=== PATIENT | female | born 1980 ===

== ENCOUNTER 2019-05-07 13:12 | Inpatient (IN) | payer OTHER ==
[2019-05-07 14:09] LABS: Hematocrit 40.4 % (30.3-42.9); Hemoglobin 13.4 gm/dl (10.1-14.3); Mean Corpuscular HGB Conc 33 % (30-34); Mean Corpuscular Volume 91 fl (79-97); Platelet Count 251 K/mm3 (140-440); Red Blood Count 4.44 M/mm3 (3.65-5.03); Red Cell Distribution Width 13.5 % (13.2-15.2)
[2019-05-07 14:29] LABS: Alanine Aminotransferase 20 units/L (7-56); Uric Acid 5.1 mg/dL (3.5-7.6)
[2019-05-07 14:35] LABS: Bacteria,Urine 1+ /HPF (Negative); Bilirubin,Urine NEG (Negative); Blood,Urine NEG (Negative); Color,Urine Yellow (Yellow); Mucus,Urine FEW /HPF; Protein,Urine <15 mg/dL mg/dL (Negative); Urobilinogen,Urine < 2.0 mg/dL (<2.0)
--- NOTE | 2019-05-07 15:36 | History and Physical Report ---
History of Present Illness Date of examination: 05/07/19 Date of admission: 05/07/19 13:12 Chief complaint: IOL secondary to elevated B/P readings History of present illness: 39 yo, @ 37.6 wks gestation, initiated care with [facility] @ 8 wks. Her has been complicated by AMA, MO and pregestational DM (Glyburide 2.5mg). She was sent to [facility] from the office today for IOL secondary to elevated B/P reading of 170/93, with 24 hr urine protein result of 330mg. She reports positive FM. Denies VB, H/A, visual changes, epigastric pain or LOF. Labs: O+, antibody negative; Pap normal; Rubella immune; VDRL negative; urine culture negative; HBsAg negative; HIV negative; GC/ Chlamydia netative MSAFP netative; 1 hr gtt - 201; GBS negative. Past History Past Medical History: diabetes, other (morbid obesity; Left breast cyst 2015) Past Surgical History: no surgical history Family/Genetic History: diabetes (Father), hypertension (Mother) Social history: , lives with family, full code. denies: smoking, alcohol abuse, prescription drug abuse, IV drug use - Obstetrical History Expected Date of Delivery: 05/22/19 Actual Gestation: 37 Week(s) 6 Day(s) : 2 Para: 2 Hx # Term Pregnancies: 0 Number of Pregnancies: 1 Spontaneous Abortions: 0 Induced : 0 Number of Living Children: 2 #1 Gender: Female year: 2[age][birth year] (Twins) Method of Delivery: Vaginal Gestational age at delivery: 34 Complications: none Medications and Allergies Allergies Allergy/AdvReac Type Severity Reaction Status Date / Time No Known Allergies Allergy Unverified 05/07/19 13:31 Review of Systems All systems: negative - Vital Signs Vital signs: Vital Signs Pulse BP 71 162/74 05/07/19 13:55 05/07/19 13:55 Temp Pulse Resp BP Pulse Ox 97.7 F 80 16 160/80 05/07/19 14:12 05/07/19 14:54 05/07/19 14:12 05/07/19 14:54 - Physical Exam Breasts: Positive: normal Cardiovascular: Normal S1 Lungs: Positive: Normal air movement Abdomen: Positive: other (gravid) Genitourinary (Female): Positive: normal external genitalia, normal perenium Vagina: Positive: normal moisture Uterus: Positive: enlarged (S>D) Extremities: Positive: edema (BLE) Deep Tendon Reflex Grade: Normal +2 - Obstetrical FHR: category 1 Uterine Contraction Monitor Mode: External Cervical Dilatation: 0 Cervical Effacement Percentage: 30 station: -4 Uterine Contraction Pattern: Irregular Uterine Tone Measurement Phase: Resting Uterine Contraction Intensity: Mild Results Result Diagrams: 05/07/19 13:52 05/07/19 13:53 Abnormal lab results 05/07/19 05/07/19 Range/Units 13:52 13:53 WBC 12.0 H (4.5-11.0) K/mm3 Creatinine 0.3 L (0.7-1.2) mg/dL Lactate Dehydrogenase 236 H (91-180) units/L All other labs normal. Assessment and Plan - Patient Problems (1) Encounter for induction of labor Current Visit: Yes Status: Acute Plan to address problem: Admit to L & D for IOL Cervidil 10 mg vaginal x 12 hrs as tolerated Pain medications as desired Anticipate (2) Elevated blood pressure affecting in third trimester, antepartum Current Visit: Yes Status: Acute Plan to address problem: Monitor B/Ps every hour Administer anti-hypertensives as ordered Notify provider for B/P readings > 160/110 (3) BMI 38.0-38.9,adult Current Visit: Yes Status: Acute
--- NOTE | 2019-05-07 15:58 | Ultrasound Report ---
ULTRASOUND OBSTETRIC LIMITED INDICATION / CLINICAL INFORMATION: PRESENTATION. TECHNIQUE: Transabdominal ultrasound imaging. COMPARISON: None available. FINDINGS: HEART RATE (beats per minute): 139 AMNIOTIC FLUID INDEX (cm) = not measured PRESENTATION: Cephalic. ADDITIONAL FINDINGS: None. IMPRESSION: Cephalic presentation Signer Name: Roshan Sanchez Jr, MD Signed: 05/07/2019 3:54 PM Workstation Name: [id number]
[2019-05-07] MEDS ORDERED: LABETALOL IV ONE ×2 (16:00→16:04)
[2019-05-07] MEDS ORDERED: BRETHINE SUB-Q PRN (16:04)
[2019-05-07] MEDS ORDERED: MINERAL OIL PO PRN (16:04)
[2019-05-07] MEDS ORDERED: ZOFRAN IV PRN (16:04)
[2019-05-07] MEDS ORDERED: STADOL IV PRN (16:04)
[2019-05-07] MEDS ORDERED: XYLOCAINE 2% INFILTRATI ONE (16:04)
[2019-05-07] MEDS ORDERED: LACTATED RINGERS 1,000 ML ONE (16:04)
[2019-05-07] MEDS ORDERED: CERVIDIL VG ONE (16:30)
[2019-05-07] MEDS ORDERED: PITOCin/NS 20 UNIT/1000ML DRIP 20 UNITS/1,000 ML BAG IV SCH (17:00)
[2019-05-07] MEDS: LABETALOL PO SCH ×2 (19:59→22:00)
[2019-05-08] MEDS ORDERED: DIABETA PO SCH (08:00)
[2019-05-08] MEDS: CYTOTEC VG PRN ×2 (09:15→14:06)
[2019-05-08] MEDS: LACTATED RINGERS 1,000 ML IV SCH ×2 (09:48→18:15)
--- NOTE | 2019-05-08 10:04 | Event Note ---
Date: 05/08/19 Examined at 0910HRs. Fetus category 1 tracing. Cytotec 25mcg was inserted. Cervix was 3 cm. 60% effaced. Membranes were intact.
[2019-05-08] MEDS: LABETALOL PO SCH (13:37)
--- NOTE | 2019-05-08 14:11 | Progress Note ---
Assessment and Plan A: IUP @ 38 Weeks Category I Tracing PIH Pregestional Diabetes GBS Negative P: Cytotec 25mg Intravaginal x 1 dose Continue Accuchecks as ordered Continue Glyburide as Ordered Continue Labetolol as Ordered Subjective - Subjective Date of service: 05/08/19 Patient reports: contractions, other (Denies HAs, Visual changes, Dizziness, Nausea) Objective - Vital Signs Vital Signs: Vital Signs - 12hr 05/08/19 05/08/19 05/08/19 02:22 03:22 04:22 Pulse Rate 77 81 79 Blood Pressure 140/70 151/72 137/71 05/08/19 05/08/19 05/08/19 05:22 06:22 08:20 Pulse Rate 82 81 76 Blood Pressure 145/77 149/67 168/76 05/08/19 05/08/19 05/08/19 08:23 09:23 10:23 Pulse Rate 81 77 81 Blood Pressure 144/72 135/63 198/84 05/08/19 05/08/19 05/08/19 11:23 13:20 13:22 Pulse Rate 100 H 85 86 Blood Pressure 201/87 178/77 162/64 05/08/19 13:37 Pulse Rate Blood Pressure 162/64 - Exam Breasts: normal Cardiovascular: Regular rate Lungs: Clear to auscultation, Normal air movement Abdomen: Present: normal appearance, soft, normal bowel sounds Uterus: Present: normal, firm, fundal height above umbilicus FHR: category 1 Uterine Contraction Monitor Mode: External Cervical Dilatation: 2 (VTX, Intact) Cervical Effacement Percentage: 50 station: -3 Uterine Contraction Pattern: Irregular Uterine Tone Measurement Phase: Resting Uterine Contraction Intensity: Mild - Labs Labs: Abnormal Labs 05/07/19 05/07/19 13:52 13:53 WBC 12.0 H Creatinine 0.3 L Lactate Dehydrogenase 236 H Laboratory Results - last 24 hr 05/07/19 05/07/19 05/07/19 13:46 13:52 13:53 WBC 12.0 H RBC 4.44 Hgb 13.4 Hct 40.4 MCV 91 MCH 30 MCHC 33 RDW 13.5 Plt Count 251 Creatinine 0.3 L Estimated GFR > 60 POC Glucose Uric Acid 5.1 AST 21 ALT 20 Lactate Dehydrogenase 236 H Urine Color Urine Turbidity Urine pH Ur Specific Bedias Urine Protein Urine Glucose (UA) Urine Ketones Urine Blood Urine Nitrite Urine Bilirubin Urine Urobilinogen Ur Leukocyte Esterase Urine WBC (Auto) Urine RBC (Auto) U Epithel Cells (Auto) Urine Bacteria (Auto) Urine Mucus Blood Type O POSITIVE Antibody Screen Negative 05/07/19 05/08/19 05/08/19 14:00 02:45 06:20 WBC RBC Hgb Hct MCV MCH MCHC RDW Plt Count Creatinine Estimated GFR POC Glucose 71 71 Uric Acid AST ALT Lactate Dehydrogenase Urine Color Yellow Urine Turbidity Slightly-cloudy Urine pH 6.0 Ur Specific [place] 1.018 Urine Protein <15 mg/dl Urine Glucose (UA) Neg Urine Ketones Neg Urine Blood Neg Urine Nitrite Neg Urine Bilirubin Neg Urine Urobilinogen < 2.0 Ur Leukocyte Esterase Neg Urine WBC (Auto) 1.0 Urine RBC (Auto) 4.0 U Epithel Cells (Auto) 4.0 Urine Bacteria (Auto) 1+ Urine Mucus Few Blood Type Antibody Screen
[2019-05-08] MEDS: PITOCin/NS 30 UNIT/500ML 30 UNITS/500 ML BAG IV SCH (18:48)
[2019-05-08] MEDS ORDERED: AMBIEN PO PRN (19:50)
[2019-05-08] MEDS ORDERED: LABETALOL IV ONE ×2 (20:40→21:16)
[2019-05-08] MEDS: SUBLIMAZE IV PRN (20:54)
--- NOTE | 2019-05-08 20:54 | Progress Note ---
Subjective - Subjective Date of service: 05/08/19 Principal diagnosis: IUP at term,PIH, GDM with treatable series BP and pain Interval history: BP 205/79 Patient with slight frontal headache I ordered Labetalol 20mg IV stat and repeat BP in 10 minutes At bedside, category 1 tracing Cervix 2cm/4cm long/-4 station Oxytocin at 2mu/min, [place] shows contractions Q3-4 minutes I asked for oxytocin to be on hold and for cervidil to be placed. Will repeat Labetalol 40mg IV if BP s persistently elevated >160/110. I have ordered repeat PIH Labs and Magnesium Sulfate at 2gm/hr Will monitor closely Hill CORRIGAN Patient reports: contractions, other (Denies HAs, Visual changes, Dizziness, Nausea) Objective - Vital Signs Vital Signs: Vital Signs - 12hr 05/08/19 05/08/19 05/08/19 09:23 10:23 11:23 Temperature Pulse Rate 77 81 100 H Blood Pressure 135/63 198/84 201/87 05/08/19 05/08/19 05/08/19 13:20 13:22 13:37 Temperature Pulse Rate 85 86 Blood Pressure 178/77 162/64 162/64 05/08/19 05/08/19 05/08/19 14:23 15:22 16:22 Temperature Pulse Rate 78 77 81 Blood Pressure 174/75 145/69 146/68 05/08/19 05/08/19 05/08/19 17:16 17:22 18:22 Temperature 98.4 F Pulse Rate 81 75 Blood Pressure 134/64 136/65 05/08/19 05/08/19 05/08/19 19:23 20:23 20:33 Temperature Pulse Rate 81 85 80 Blood Pressure 140/65 205/79 184/79 05/08/19 05/08/19 20:36 20:51 Temperature Pulse Rate 75 80 Blood Pressure 185/81 179/88 - Labs Labs: Abnormal Labs 05/07/19 05/07/19 13:52 13:53 WBC 12.0 H Creatinine 0.3 L Lactate Dehydrogenase 236 H Laboratory Results - last 24 hr 05/08/19 05/08/19 05/08/19 02:45 06:20 15:52 POC Glucose 71 71 89 05/08/19 20:43 POC Glucose 75
[2019-05-08] MEDS ORDERED: MAGNESIUM SULFATE 4GM/100ML 4 GM/100 ML BAG IV ONE ×2 (21:07→21:13)
[2019-05-08 21:48] LABS: Hematocrit 37.2 % (30.3-42.9); Hemoglobin 12.6 gm/dl (10.1-14.3); Mean Corpuscular HGB Conc 34 % (30-34); Mean Corpuscular Volume 91 fl (79-97); Platelet Count 234 K/mm3 (140-440); Red Blood Count 4.06 M/mm3 (3.65-5.03); Red Cell Distribution Width 13.9 % (13.2-15.2)
[2019-05-08 22:00] LABS: Alanine Aminotransferase 21 units/L (7-56); BUN/Creatinine Ratio 33; Blood Urea Nitrogen 13 mg/dL (7-17); Calcium 8.3 mg/dL (8.4-10.2); Hemolysis Index 6; Uric Acid 6.3 mg/dL (3.5-7.6)
[2019-05-08] MEDS ORDERED: MAGNESIUM SULFATE 40GM/1000ML 40 GM/1,000 ML BAG IV SCH (22:00)
[2019-05-08] MEDS ORDERED: CERVIDIL VG ONE (22:15)
[2019-05-08 23:36] LABS: Hematocrit 36.2 % (30.3-42.9); Hemoglobin 12.5 gm/dl (10.1-14.3); Mean Corpuscular HGB Conc 35 % (30-34); Mean Corpuscular Volume 92 fl (79-97); Platelet Count 234 K/mm3 (140-440); Red Blood Count 3.95 M/mm3 (3.65-5.03); Red Cell Distribution Width 13.8 % (13.2-15.2)
[2019-05-09] MEDS: LABETALOL PO SCH ×3 (01:05→21:37)
[2019-05-09 01:46] LABS: Basophils % (Manual) 0 % (0.0-1.8); Eosinophils % (Manual) 0 % (0.0-4.3); Total Cells Counted 100
[2019-05-09 01:47] LABS: Large Platelets 1+; Platelet Estimate Consistent w Auto; RBC Morphology Normal
[2019-05-09] MEDS: SUBLIMAZE IV PRN (04:23)
[2019-05-09] MEDS: LACTATED RINGERS 1,000 ML IV SCH (05:30)
--- NOTE | 2019-05-09 11:02 | Progress Note ---
Assessment and Plan A: Term IUP 38w 1d GBS Negative Magnesium Sulfate 2g/hr PIH: PIH labs WNL; VSS GDM Category [address] P: Routine labor orders Continue magnesium Sulfate (Mag level Q4hrs) Continue Glyburide Remove cervidil Pitocin Augmentation Anticipate Subjective - Subjective Date of service: 05/09/19 Principal diagnosis: IUP at term,IOL (PIH, GDM) Interval history: See H&P Patient reports: vaginal bleeding (brownish bloody show), movement normal, contractions, other (Denies HAs, Visual changes, Dizziness, Nausea), no loss of fluid Objective - Vital Signs Vital Signs: Vital Signs - 12hr 05/08/19 05/08/19 05/08/19 23:01 23:12 23:21 Temperature Pulse Rate 75 73 76 Respiratory Rate Blood Pressure 179/70 137/63 137/64 Blood Pressure [Right] 05/08/19 05/08/19 05/08/19 23:32 23:42 23:51 Temperature Pulse Rate 75 77 78 Respiratory Rate Blood Pressure 147/67 137/65 134/62 Blood Pressure [Right] 05/09/19 05/09/19 05/09/19 00:00 00:01 00:11 Temperature 98.1 F Pulse Rate 71 73 Respiratory 18 Rate Blood Pressure 143/62 140/62 Blood Pressure [Right] 05/09/19 05/09/19 05/09/19 00:21 00:33 00:42 Temperature Pulse Rate 72 78 78 Respiratory Rate Blood Pressure 155/67 157/74 126/58 Blood Pressure [Right] 05/09/19 05/09/19 05/09/19 00:51 01:01 01:05 Temperature Pulse Rate 78 78 78 Respiratory Rate Blood Pressure 139/63 138/66 138/66 Blood Pressure [Right] 05/09/19 05/09/19 05/09/19 01:11 01:21 01:31 Temperature Pulse Rate 77 79 76 Respiratory Rate Blood Pressure 139/64 139/65 139/65 Blood Pressure [Right] 05/09/19 05/09/19 05/09/19 01:41 01:51 02:01 Temperature Pulse Rate 78 81 81 Respiratory Rate Blood Pressure 137/64 138/65 121/58 Blood Pressure [Right] 05/09/19 05/09/19 05/09/19 02:11 02:21 02:31 Temperature Pulse Rate 81 79 76 Respiratory Rate Blood Pressure 140/67 125/56 131/63 Blood Pressure [Right] 05/09/19 05/09/19 05/09/19 02:41 02:51 03:01 Temperature Pulse Rate 80 78 81 Respiratory Rate Blood Pressure 122/62 117/56 132/62 Blood Pressure [Right] 05/09/19 05/09/19 05/09/19 03:31 04:00 04:01 Temperature 98 F Pulse Rate 78 81 Respiratory 18 Rate Blood Pressure 135/61 143/64 Blood Pressure [Right] 05/09/19 05/09/19 05/09/19 04:32 05:02 05:31 Temperature Pulse Rate 75 74 87 Respiratory Rate Blood Pressure 132/62 106/54 137/65 Blood Pressure [Right] 05/09/19 05/09/19 05/09/19 06:01 06:32 07:01 Temperature Pulse Rate 84 75 77 Respiratory Rate Blood Pressure 131/62 102/52 117/57 Blood Pressure [Right] 05/09/19 05/09/19 05/09/19 07:24 07:31 08:02 Temperature 98.9 F Pulse Rate 77 82 75 Respiratory Rate Blood Pressure 136/73 120/58 Blood Pressure 117/57 [Right] 05/09/19 05/09/19 05/09/19 08:31 09:01 09:32 Temperature Pulse Rate 76 77 73 Respiratory Rate Blood Pressure 113/52 121/60 126/59 Blood Pressure [Right] 05/09/19 05/09/19 05/09/19 09:48 10:02 10:32 Temperature Pulse Rate 73 74 80 Respiratory Rate Blood Pressure 126/59 114/58 108/51 Blood Pressure [Right] - Exam Breasts: normal Cardiovascular: Regular rate, Normal S1, Normal S2, No murmurs Lungs: Clear to auscultation, Normal air movement Abdomen: Present: normal appearance, soft, normal bowel sounds, other (Gravid). Absent: distention Vulva: both: normal Uterus: Present: other (gravid) FHR: category 1 Uterine Contraction Monitor Mode: External Cervical Dilatation: 2 Cervical Effacement Percentage: 70 station: -2 Uterine Contraction Pattern: Irregular Uterine Tone Measurement Phase: Resting Uterine Contraction Intensity: Mild Extremities: normal, edema (+1) Deep Tendon Reflex Grade: Normal +2 - Labs Labs: Abnormal Labs 05/07/19 05/07/19 05/08/19 13:52 13:53 21:21 WBC 12.0 H MCHC Seg Neuts % (Manual) Seg Neutrophils # Man Carbon Dioxide 17 L Creatinine 0.3 L 0.4 L Calcium 8.3 L Magnesium Lactate Dehydrogenase 236 H Total Protein 6.2 L Albumin 3.0 L 05/08/19 05/09/19 05/09/19 23:21 00:29 05:58 WBC 11.6 H MCHC 35 H Seg Neuts % (Manual) 82.0 H Seg Neutrophils # Man 9.5 H Carbon Dioxide Creatinine Calcium Magnesium 4.10 H 4.80 H Lactate Dehydrogenase Total Protein Albumin Laboratory Results - last 24 hr 05/08/19 05/08/19 05/08/19 15:52 20:24 20:43 WBC 10.5 RBC 4.06 Hgb 12.6 Hct 37.2 MCV 91 MCH 31 MCHC 34 RDW 13.9 Plt Count 234 Lymph % (Auto) [place] % (Auto) Eos % (Auto) Baso % (Auto) Lymph # [place] # Eos # Baso # Add Manual Diff Total Counted Seg Neutrophils % Seg Neuts % (Manual) Band Neutrophils % Lymphocytes % (Manual) Reactive Lymphs % (Man) Monocytes % (Manual) Eosinophils % (Manual) Basophils % (Manual) Metamyelocytes % Myelocytes % Promyelocytes % Blast Cells % Nucleated RBC % Seg Neutrophils # Seg Neutrophils # Man Band Neutrophils # Lymphocytes # (Manual) Abs React Lymphs (Man) Monocytes # (Manual) Eosinophils # (Manual) Basophils # (Manual) Metamyelocytes # Myelocytes # Promyelocytes # Blast Cells # WBC Morphology Hypersegmented Neuts Hyposegmented Neuts Hypogranular Neuts Smudge Cells Toxic Granulation Toxic Vacuolation Dohle Bodies Pelger-Huet Anomaly Bennett Rods Platelet Estimate Clumped Platelets Plt Clumps, EDTA Large Platelets Giant Platelets Platelet Satelliting Plt Morphology Comment RBC Morphology Dimorphic RBCs Polychromasia Hypochromasia Poikilocytosis Anisocytosis Microcytosis Macrocytosis Spherocytes Pappenheimer Bodies Sickle Cells Target Cells Tear Drop Cells Ovalocytes Helmet Cells [place] Bodies [place] Rings Jinny Cells Bite Cells Crenated Cell Elliptocytes Acanthocytes (Spur) Rouleaux Hemoglobin C Crystals Schistocytes Malaria parasites Jose Luis Bodies Hem Pathologist Commnt Sodium Potassium Chloride Carbon Dioxide Anion Gap BUN Creatinine Estimated GFR BUN/Creatinine Ratio Glucose POC Glucose 89 75 Uric Acid Calcium Magnesium Total Bilirubin AST ALT Alkaline Phosphatase Total Protein Albumin Albumin/Globulin Ratio 05/08/19 05/08/19 05/09/19 21:21 23:21 00:29 WBC 11.6 H RBC 3.95 Hgb 12.5 Hct 36.2 MCV 92 MCH 32 MCHC 35 H RDW 13.8 Plt Count 234 Lymph % (Auto) [place] % (Auto) [place] Eos % (Auto) [place] Baso % (Auto) [place] Lymph # [place]her [place] # [place] Eos # [place] Baso # [place] Add Manual Diff Complete Total Counted 100 Seg Neutrophils % [place] Seg Neuts % (Manual) 82.0 H Band Neutrophils % 0 Lymphocytes % (Manual) 16.0 Reactive Lymphs % (Man) 0 Monocytes % (Manual) 2.0 Eosinophils % (Manual) 0 Basophils % (Manual) 0 Metamyelocytes % 0 Myelocytes % 0 Promyelocytes % 0 Blast Cells % 0 Nucleated RBC % Not Reportable Seg Neutrophils # [place] Seg Neutrophils # Man 9.5 H Band Neutrophils # 0.0 Lymphocytes # (Manual) 1.9 Abs React Lymphs (Man) 0.0 Monocytes # (Manual) 0.2 Eosinophils # (Manual) 0.0 Basophils # (Manual) 0.0 Metamyelocytes # 0.0 Myelocytes # 0.0 Promyelocytes # 0.0 Blast Cells # 0.0 WBC Morphology Not Reportable Hypersegmented Neuts Not Reportable Hyposegmented Neuts Not Reportable Hypogranular Neuts Not Reportable Smudge Cells Not Reportable Toxic Granulation Not Reportable Toxic Vacuolation Not Reportable Dohle Bodies Not Reportable Pelger-Huet Anomaly Not Reportable Bennett Rods Not Reportable Platelet Estimate Consistent w auto Clumped Platelets Not Reportable Plt Clumps, EDTA Not Reportable Large Platelets 1+ Giant Platelets Not Reportable Platelet Satelliting Not Reportable Plt Morphology Comment Not Reportable RBC Morphology Normal Dimorphic RBCs Not Reportable Polychromasia Not Reportable Hypochromasia Not Reportable Poikilocytosis Not Reportable Anisocytosis Not Reportable Microcytosis Not Reportable Macrocytosis Not Reportable Spherocytes Not Reportable Pappenheimer Bodies Not Reportable Sickle Cells Not Reportable Target Cells Not Reportable Tear Drop Cells Not Reportable Ovalocytes Not Reportable Helmet Cells Not Reportable [place] Bodies Not Reportable [place] Rings Not Reportable Jinny Cells Not Reportable Bite Cells Not Reportable Crenated Cell Not Reportable Elliptocytes Not Reportable Acanthocytes (Spur) Not Reportable Rouleaux Not Reportable Hemoglobin C Crystals Not Reportable Schistocytes Not Reportable Malaria parasites Not Reportable Jose Luis Bodies Not Reportable Hem Pathologist Commnt No Sodium 137 Potassium 3.8 Chloride 103.9 Carbon Dioxide 17 L Anion Gap 20 BUN 13 Creatinine 0.4 L Estimated GFR > 60 BUN/Creatinine Ratio 33 Glucose 83 POC Glucose Uric Acid 6.3 Calcium 8.3 L Magnesium 4.10 H Total Bilirubin 0.40 AST 21 ALT 21 Alkaline Phosphatase 128 Total Protein 6.2 L Albumin 3.0 L Albumin/Globulin Ratio 0.9 05/09/19 05/09/19 05/09/19 00:33 04:22 05:58 WBC RBC Hgb Hct MCV MCH MCHC RDW Plt Count Lymph % (Auto) [place] % (Auto) Eos % (Auto) Baso % (Auto) Lymph # [place] # Eos # Baso # Add Manual Diff Total Counted Seg Neutrophils % Seg Neuts % (Manual) Band Neutrophils % Lymphocytes % (Manual) Reactive Lymphs % (Man) Monocytes % (Manual) Eosinophils % (Manual) Basophils % (Manual) Metamyelocytes % Myelocytes % Promyelocytes % Blast Cells % Nucleated RBC % Seg Neutrophils # Seg Neutrophils # Man Band Neutrophils # Lymphocytes # (Manual) Abs React Lymphs (Man) Monocytes # (Manual) Eosinophils # (Manual) Basophils # (Manual) Metamyelocytes # Myelocytes # Promyelocytes # Blast Cells # WBC Morphology Hypersegmented Neuts Hyposegmented Neuts Hypogranular Neuts Smudge Cells Toxic Granulation Toxic Vacuolation Dohle Bodies Pelger-Huet Anomaly Bennett Rods Platelet Estimate Clumped Platelets Plt Clumps, EDTA Large Platelets Giant Platelets Platelet Satelliting Plt Morphology Comment RBC Morphology Dimorphic RBCs Polychromasia Hypochromasia Poikilocytosis Anisocytosis Microcytosis Macrocytosis Spherocytes Pappenheimer Bodies Sickle Cells Target Cells Tear Drop Cells Ovalocytes Helmet Cells [place] Bodies [place] Rings Jinny Cells Bite Cells Crenated Cell Elliptocytes Acanthocytes (Spur) Rouleaux Hemoglobin C Crystals Schistocytes Malaria parasites Jose Luis Bodies Hem Pathologist Commnt Sodium Potassium Chloride Carbon Dioxide Anion Gap BUN Creatinine Estimated GFR BUN/Creatinine Ratio Glucose POC Glucose 82 100 Uric Acid Calcium Magnesium 4.80 H Total Bilirubin AST ALT Alkaline Phosphatase Total Protein Albumin Albumin/Globulin Ratio
[2019-05-09] MEDS: PITOCin/NS 30 UNIT/500ML 30 UNITS/500 ML BAG IV SCH (13:22)
[2019-05-09] MEDS ORDERED: REGLAN IV SCH (18:01)
[2019-05-09] MEDS ORDERED: BICITRA PO ONE (18:01)
[2019-05-09] MEDS ORDERED: PEPCID IV SCH ×2 (18:01→19:09)
--- NOTE | 2019-05-09 18:01 | Progress Note ---
Assessment and Plan A: Term IUP 38w 1d GBS Negative Magnesium Sulfate 2g/hr; Mag level 5.10 PIH: PIH labs WNL; VSS GDM Category 1 tracing Pitocin 14mu Cervix unchanged after cervidil x2, cytotec x2, pitocin x days. Failed IOL. P: Proceed to Primary c/s; Tyree Ruby notified of need for c/s. Continue magnesium Sulfate until pt goes to OR NPO Pre-op orders Stop Pitocin Subjective - Subjective Date of service: 05/09/19 Principal diagnosis: IUP at term,IOL (PIH, GDM) Interval history: See H&P Patient reports: vaginal bleeding (brownish bloody show), movement normal, contractions, other (Denies HAs, Visual changes, Dizziness, Nausea), no loss of fluid Objective - Vital Signs Vital Signs: Vital Signs - 12hr 05/09/19 05/09/19 05/09/19 06:01 06:32 07:01 Temperature Pulse Rate 84 75 77 Respiratory Rate Blood Pressure 131/62 102/52 117/57 Blood Pressure [Right] 05/09/19 05/09/19 05/09/19 07:24 07:31 08:02 Temperature 98.9 F Pulse Rate 77 82 75 Respiratory Rate Blood Pressure 136/73 120/58 Blood Pressure 117/57 [Right] 05/09/19 05/09/19 05/09/19 08:31 09:01 09:32 Temperature Pulse Rate 76 77 73 Respiratory Rate Blood Pressure 113/52 121/60 126/59 Blood Pressure [Right] 05/09/19 05/09/19 05/09/19 09:48 10:02 10:30 Temperature Pulse Rate 73 74 Respiratory 18 Rate Blood Pressure 126/59 114/58 Blood Pressure [Right] 05/09/19 05/09/19 05/09/19 10:32 11:02 11:30 Temperature 97.8 F Pulse Rate 80 76 Respiratory Rate Blood Pressure 108/51 114/53 Blood Pressure [Right] 05/09/19 05/09/19 05/09/19 11:31 12:02 12:32 Temperature Pulse Rate 72 80 79 Respiratory Rate Blood Pressure 105/54 123/60 135/62 Blood Pressure [Right] 05/09/19 05/09/19 05/09/19 13:03 13:19 13:32 Temperature 98.0 F Pulse Rate 78 76 Respiratory Rate Blood Pressure 125/60 127/58 Blood Pressure [Right] 05/09/19 05/09/19 05/09/19 16:48 17:02 17:32 Temperature Pulse Rate 77 74 75 Respiratory Rate Blood Pressure 140/72 135/63 166/74 Blood Pressure [Right] - Exam Breasts: normal Cardiovascular: Regular rate, Normal S1, Normal S2, No murmurs Lungs: Clear to auscultation, Normal air movement Abdomen: Present: normal appearance, soft, normal bowel sounds, other (gravid). Absent: distention Vulva: both: normal Uterus: Present: other (gravid) FHR: category 1 Uterine Contraction Monitor Mode: External Cervical Dilatation: 2 (Unchanged from this am. ) station: -3 Uterine Contraction Pattern: Absent Uterine Tone Measurement Phase: Resting Uterine Contraction Intensity: Mild - Labs Labs: Abnormal Labs 05/07/19 05/07/19 05/08/19 13:52 13:53 21:21 WBC 12.0 H MCHC Seg Neuts % (Manual) Seg Neutrophils # Man Carbon Dioxide 17 L Creatinine 0.3 L 0.4 L POC Glucose Calcium 8.3 L Magnesium Lactate Dehydrogenase 236 H Total Protein 6.2 L Albumin 3.0 L 05/08/19 05/09/19 05/09/19 23:21 00:29 05:58 WBC 11.6 H MCHC 35 H Seg Neuts % (Manual) 82.0 H Seg Neutrophils # Man 9.5 H Carbon Dioxide Creatinine POC Glucose Calcium Magnesium 4.10 H 4.80 H Lactate Dehydrogenase Total Protein Albumin 05/09/19 05/09/19 05/09/19 08:59 14:00 16:55 WBC MCHC Seg Neuts % (Manual) Seg Neutrophils # Man Carbon Dioxide Creatinine POC Glucose 120 H 117 H Calcium Magnesium 5.10 H Lactate Dehydrogenase Total Protein Albumin Laboratory Results - last 24 hr 05/08/19 05/08/19 05/08/19 20:24 20:43 21:21 WBC 10.5 RBC 4.06 Hgb 12.6 Hct 37.2 MCV 91 MCH 31 MCHC 34 RDW 13.9 Plt Count 234 Lymph % (Auto) [place] % (Auto) Eos % (Auto) Baso % (Auto) Lymph # [place] # Eos # Baso # Add Manual Diff Total Counted Seg Neutrophils % Seg Neuts % (Manual) Band Neutrophils % Lymphocytes % (Manual) Reactive Lymphs % (Man) Monocytes % (Manual) Eosinophils % (Manual) Basophils % (Manual) Metamyelocytes % Myelocytes % Promyelocytes % Blast Cells % Nucleated RBC % Seg Neutrophils # Seg Neutrophils # Man Band Neutrophils # Lymphocytes # (Manual) Abs React Lymphs (Man) Monocytes # (Manual) Eosinophils # (Manual) Basophils # (Manual) Metamyelocytes # Myelocytes # Promyelocytes # Blast Cells # WBC Morphology Hypersegmented Neuts Hyposegmented Neuts Hypogranular Neuts Smudge Cells Toxic Granulation Toxic Vacuolation Dohle Bodies Pelger-Huet Anomaly Bennett Rods Platelet Estimate Clumped Platelets Plt Clumps, EDTA Large Platelets Giant Platelets Platelet Satelliting Plt Morphology Comment RBC Morphology Dimorphic RBCs Polychromasia Hypochromasia Poikilocytosis Anisocytosis Microcytosis Macrocytosis Spherocytes Pappenheimer Bodies Sickle Cells Target Cells Tear Drop Cells Ovalocytes Helmet Cells [place] Bodies [place] Rings [place] Cells Bite Cells Crenated Cell Elliptocytes Acanthocytes (Spur) Rouleaux Hemoglobin C Crystals Schistocytes Malaria parasites Jose Luis Bodies Hem Pathologist Commnt Sodium 137 Potassium 3.8 Chloride 103.9 Carbon Dioxide 17 L Anion Gap 20 BUN 13 Creatinine 0.4 L Estimated GFR > 60 BUN/Creatinine Ratio 33 Glucose 83 POC Glucose 75 Uric Acid 6.3 Calcium 8.3 L Magnesium Total Bilirubin 0.40 AST 21 ALT 21 Alkaline Phosphatase 128 Total Protein 6.2 L Albumin 3.0 L Albumin/Globulin Ratio 0.9 05/08/19 05/09/19 05/09/19 23:21 00:29 00:33 WBC 11.6 H RBC 3.95 Hgb 12.5 Hct 36.2 MCV 92 MCH 32 MCHC 35 H RDW 13.8 Plt Count 234 Lymph % (Auto) Laundry Marker Supervisor [place] % (Auto) Laundry Marker Supervisor Eos % (Auto) Laundry Marker Supervisor Baso % (Auto) Laundry Marker Supervisor Lymph # Laundry Marker Supervisor [place] # Laundry Marker Supervisor Eos # Laundry Marker Supervisor Baso # Laundry Marker Supervisor Add Manual Diff Complete Total Counted 100 Seg Neutrophils % Laundry Marker Supervisor Seg Neuts % (Manual) 82.0 H Band Neutrophils % 0 Lymphocytes % (Manual) 16.0 Reactive Lymphs % (Man) 0 Monocytes % (Manual) 2.0 Eosinophils % (Manual) 0 Basophils % (Manual) 0 Metamyelocytes % 0 Myelocytes % 0 Promyelocytes % 0 Blast Cells % 0 Nucleated RBC % Not Reportable Seg Neutrophils # Laundry Marker Supervisor Seg Neutrophils # Man 9.5 H Band Neutrophils # 0.0 Lymphocytes # (Manual) 1.9 Abs React Lymphs (Man) 0.0 Monocytes # (Manual) 0.2 Eosinophils # (Manual) 0.0 Basophils # (Manual) 0.0 Metamyelocytes # 0.0 Myelocytes # 0.0 Promyelocytes # 0.0 Blast Cells # 0.0 WBC Morphology Not Reportable Hypersegmented Neuts Not Reportable Hyposegmented Neuts Not Reportable Hypogranular Neuts Not Reportable Smudge Cells Not Reportable Toxic Granulation Not Reportable Toxic Vacuolation Not Reportable Dohle Bodies Not Reportable Pelger-Huet Anomaly Not Reportable Bennett Rods Not Reportable Platelet Estimate Consistent w auto Clumped Platelets Not Reportable Plt Clumps, EDTA Not Reportable Large Platelets 1+ Giant Platelets Not Reportable Platelet Satelliting Not Reportable Plt Morphology Comment Not Reportable RBC Morphology Normal Dimorphic RBCs Not Reportable Polychromasia Not Reportable Hypochromasia Not Reportable Poikilocytosis Not Reportable Anisocytosis Not Reportable Microcytosis Not Reportable Macrocytosis Not Reportable Spherocytes Not Reportable Pappenheimer Bodies Not Reportable Sickle Cells Not Reportable Target Cells Not Reportable Tear Drop Cells Not Reportable Ovalocytes Not Reportable Helmet Cells Not Reportable [place] Bodies Not Reportable [place] Rings Not Reportable [place] Cells Not Reportable Bite Cells Not Reportable Crenated Cell Not Reportable Elliptocytes Not Reportable Acanthocytes (Spur) Not Reportable Rouleaux Not Reportable Hemoglobin C Crystals Not Reportable Schistocytes Not Reportable Malaria parasites Not Reportable Jose Luis Bodies Not Reportable Hem Pathologist Commnt No Sodium Potassium Chloride Carbon Dioxide Anion Gap BUN Creatinine Estimated GFR BUN/Creatinine Ratio Glucose POC Glucose 82 Uric Acid Calcium Magnesium 4.10 H Total Bilirubin AST ALT Alkaline Phosphatase Total Protein Albumin Albumin/Globulin Ratio 05/09/19 05/09/19 05/09/19 04:22 05:58 08:59 WBC RBC Hgb Hct MCV MCH MCHC RDW Plt Count Lymph % (Auto) [place] % (Auto) Eos % (Auto) Baso % (Auto) Lymph # [place] # Eos # Baso # Add Manual Diff Total Counted Seg Neutrophils % Seg Neuts % (Manual) Band Neutrophils % Lymphocytes % (Manual) Reactive Lymphs % (Man) Monocytes % (Manual) Eosinophils % (Manual) Basophils % (Manual) Metamyelocytes % Myelocytes % Promyelocytes % Blast Cells % Nucleated RBC % Seg Neutrophils # Seg Neutrophils # Man Band Neutrophils # Lymphocytes # (Manual) Abs React Lymphs (Man) Monocytes # (Manual) Eosinophils # (Manual) Basophils # (Manual) Metamyelocytes # Myelocytes # Promyelocytes # Blast Cells # WBC Morphology Hypersegmented Neuts Hyposegmented Neuts Hypogranular Neuts Smudge Cells Toxic Granulation Toxic Vacuolation Dohle Bodies Pelger-Huet Anomaly Bennett Rods Platelet Estimate Clumped Platelets Plt Clumps, EDTA Large Platelets Giant Platelets Platelet Satelliting Plt Morphology Comment RBC Morphology Dimorphic RBCs Polychromasia Hypochromasia Poikilocytosis Anisocytosis Microcytosis Macrocytosis Spherocytes Pappenheimer Bodies Sickle Cells Target Cells Tear Drop Cells Ovalocytes Helmet Cells [place] Bodies [place] Rings Jinny Cells Bite Cells Crenated Cell Elliptocytes Acanthocytes (Spur) Rouleaux Hemoglobin C Crystals Schistocytes Malaria parasites Jose Luis Bodies Hem Pathologist Commnt Sodium Potassium Chloride Carbon Dioxide Anion Gap BUN Creatinine Estimated GFR BUN/Creatinine Ratio Glucose POC Glucose 100 120 H Uric Acid Calcium Magnesium 4.80 H Total Bilirubin AST ALT Alkaline Phosphatase Total Protein Albumin Albumin/Globulin Ratio 05/09/19 05/09/19 05/09/19 12:11 14:00 16:55 WBC RBC Hgb Hct MCV MCH MCHC RDW Plt Count Lymph % (Auto) [place] % (Auto) Eos % (Auto) Baso % (Auto) Lymph # [place] # Eos # Baso # Add Manual Diff Total Counted Seg Neutrophils % Seg Neuts % (Manual) Band Neutrophils % Lymphocytes % (Manual) Reactive Lymphs % (Man) Monocytes % (Manual) Eosinophils % (Manual) Basophils % (Manual) Metamyelocytes % Myelocytes % Promyelocytes % Blast Cells % Nucleated RBC % Seg Neutrophils # Seg Neutrophils # Man Band Neutrophils # Lymphocytes # (Manual) Abs React Lymphs (Man) Monocytes # (Manual) Eosinophils # (Manual) Basophils # (Manual) Metamyelocytes # Myelocytes # Promyelocytes # Blast Cells # WBC Morphology Hypersegmented Neuts Hyposegmented Neuts Hypogranular Neuts Smudge Cells Toxic Granulation Toxic Vacuolation Dohle Bodies Pelger-Huet Anomaly Bennett Rods Platelet Estimate Clumped Platelets Plt Clumps, EDTA Large Platelets Giant Platelets Platelet Satelliting Plt Morphology Comment RBC Morphology Dimorphic RBCs Polychromasia Hypochromasia Poikilocytosis Anisocytosis Microcytosis Macrocytosis Spherocytes Pappenheimer Bodies Sickle Cells Target Cells Tear Drop Cells Ovalocytes Helmet Cells [place] Bodies [place] Rings [place] Cells Bite Cells Crenated Cell Elliptocytes Acanthocytes (Spur) Rouleaux Hemoglobin C Crystals Schistocytes Malaria parasites Jose Luis Bodies Hem Pathologist Commnt Sodium Potassium Chloride Carbon Dioxide Anion Gap BUN Creatinine Estimated GFR BUN/Creatinine Ratio Glucose POC Glucose 99 117 H Uric Acid Calcium Magnesium 5.10 H Total Bilirubin AST ALT Alkaline Phosphatase Total Protein Albumin Albumin/Globulin Ratio
[2019-05-09] MEDS ORDERED: ceFAZolin 3 GM in NACL 0.9% 100 ML IV NR (18:15)
[2019-05-09] MEDS ORDERED: LACTATED RINGERS 1,000 ML IV SCH ×2 (19:00→20:00)
--- NOTE | 2019-05-09 19:08 | Event Note ---
Date: 05/09/19 Patient is stable. fetus is stable. Cervix unchanged since induction started. Os 2-3cm, Cervix 2.5cm long moderate consistency. Station0-3. IMP: Failure to progress. Plan: for delivery.
[2019-05-09] MEDS ORDERED: BICITRA PO SCH (19:09)
[2019-05-09] MEDS ORDERED: PITOCin/NS 20 UNIT/1000ML DRIP 20 UNITS/1,000 ML BAG IV SCH ×2 (20:00→23:45)
[2019-05-09] MEDS ORDERED: ANCEF/STERILE WATER 2 GM/20 ML 2 GM/20 ML SYRINGE IV NR (20:00)
[2019-05-09] MEDS ORDERED: PHENERGAN PO PRN (22:04)
[2019-05-09] MEDS ORDERED: DILAUDID IV PRN ×2 (22:04)
[2019-05-09] MEDS ORDERED: ZOFRAN IV PRN ×2 (22:04→23:32)
[2019-05-09] MEDS ORDERED: PHENERGAN PR PRN (22:04)
[2019-05-09] MEDS ORDERED: NALOXONE IV PRN ×2 (22:04→23:32)
--- NOTE | 2019-05-09 22:08 | Anesthesia Consultation ---
Anesthesia Consult and Med Hx Date of service: 05/09/19 - Airway Anesthetic Teeth Evaluation: Good ROM Head & Neck: Adequate Mental/Hyoid Distance: Adequate Mallampati Class: Class II Intubation Access Assessment: Good - Pulmonary Exam CTA: Yes - Cardiac Exam Cardiac Exam: RRR - Pre-Operative Health Status ASA Pre-Surgery Classification: ASA2, Emergency Proposed Anesthetic Plan: Spinal - Pulmonary Hx Asthma: No COPD: No Hx Pneumonia: No - Cardiovascular System Hx Hypertension: Yes - Central Nervous System Hx Seizures: No Hx Psychiatric Problems: No - Endocrine Hx Renal Disease: No Hx End Stage Renal Disease: No Hx Hypothyroidism: No Hx Hyperthyroidism: No - Hematic Hx Anemia: No Hx Sickle Cell Disease: No - Other Systems Hx Alcohol Use: No
--- NOTE | 2019-05-09 22:08 | Anesthesia Day of Surgery ---
Anesthesia Day of Surgery - Day of Surgery Patient Examined: Yes Patient H&P Reviewed: Yes Patient is NPO: Yes
[2019-05-09] MEDS ORDERED: DEXMEDETOMIDINE IV ONE (22:14)
[2019-05-09] MEDS ORDERED: fentaNYL-BUPIV 2 MCG/ML-0.125% 200 MCG/100 ML BAG EPIDURAL SCH (23:00)
[2019-05-09] MEDS ORDERED: SODIUM CHLORIDE FLUSH SYRINGE 10 ML IV NR ×2 (23:00→23:45)
[2019-05-09] MEDS ORDERED: TORADOL ONE (23:23)
[2019-05-09] MEDS ORDERED: BENADRYL ONE (23:23)
[2019-05-09] MEDS ORDERED: PHENYLEPHRINE/NS Syringe 1,000 MCG/10 ML IV ONE ×2 (23:23→23:49)
[2019-05-09] MEDS ORDERED: TUCKS PAD TP PRN (23:32)
[2019-05-09] MEDS ORDERED: TORADOL IV PRN (23:32)
[2019-05-09] MEDS ORDERED: LANSINOH TP PRN (23:32)
--- NOTE | 2019-05-09 23:41 | Operative Report ---
Operative Report Operative Report: Date of surgery: 05/09/2019 Preoperative diagnoses: Failed induction term , gestational diabetes. Postoperative diagnoses: The same. Operation: Lower segment transverse delivery Surgeon:Timo Clements MD Process Development Manager: Yamilex Espinoza CRNA Anesthesia: Spinal block Estimated blood loss: 400 mL Complications: None Findings: There was a live baby boy in cephalic presentation. scores are reported in the pediatric report. Also ovaries and fallopian tubes as well as the uterus were all grossly normal. Loops of bowel as well as the inferior aspect of the greater omentum seen through the Pfannenstiel incision were all grossly normal. Procedure in detail: The patient was taken to the operating room and given a spinal block. Patient was placed in the straight supine position and a Ramey catheter was inserted. The patient was prepped in the abdomen. The drapes were placed. A timeout was done. With the go ahead from the slot floorman, a Pfannenstiel incision was made. This incision was carried across the subcutaneous layer to the fascia which was also divided transversely. The recti abdominis muscle flaps were stripped from the fascia using a combination of blunt and sharp dissections. The muscles were in the midline to gain access to the anterior parietal peritoneum which was divided after excluding any underlying viscera. The access to the peritoneal cavity was then widened by manual stretching. The bladder blade was applied. The utero vesicle peritoneal flap was divided transversely allowing the bladder to be displaced caudally. The uterine incision was placed in the lower segment transversely. The uterine incision was carried to the decidual layer. The uterine incision was extended on both sides using the bandage scissors. The amniotic sac was ruptured with clear fluid. The head was lifted out of the false maternal pelvis and delivered through the incision using fundal pressure. The airways were bulb suctioned beginning with the mouth. Continuing fundal pressure combined with traction on the mandibular processes of the jaw delivered the rest of the baby. The umbilical cord was double clamped and divided. The baby was carefully transferred to the pediatric team. The placenta was manually removed from the uterine cavity. The uterine cavity was explored and was empty of any placental remnants. The uterine incision was repaired in 2 layers with #1 Vicryl. The surgical line on the uterus was hemostatic. Blood and clots were cleared from the peritoneal cavity. The anterior parietal peritoneum was repaired with #1 Vicryl. The fascia was repaired with #1 Vicryl. The subcutaneous layer was made hemostatic using the Bovie before the skin was closed subcuticularly with 4-0 Vicryl. There were no complications. The estimated blood loss was 400 mL. All sponges and instrument counts were correct. Patient was safely transferred to the recovery room.
--- NOTE | 2019-05-09 23:53 | Post Anesthesia Evaluation ---
- Post Anesthesia Evaluation Patient Participated: Yes Airway Patent: Yes Stable Respiratory Function: Yes Nausea/Vomiting: No Temp > 96.8F: Yes Pain Manageable: Yes Adequeate Hydration: Yes Anesthesia Complications: No Block Receding Appropriately: Yes Patient on Ventilator: No
[2019-05-10] MEDS ORDERED: MAGNESIUM SULFATE 40GM/1000ML 40 GM/1,000 ML BAG IV SCH (01:00)
[2019-05-10] MEDS: NORCO 5/325 PO PRN ×2 (05:17→10:00)
[2019-05-10] MEDS: MORPHINE IV PRN ×3 (10:00→20:47)
[2019-05-10] MEDS: PRENATAL VITAMIN PO SCH (10:00)
[2019-05-10] MEDS: FEOSOL PO SCH (10:00)
[2019-05-10] MEDS: ANCEF/NS 1 GM/50 ML 1 GM/50 ML BAG IV SCH ×2 (10:00→18:00)
[2019-05-10] MEDS: LABETALOL PO SCH ×2 (10:10→22:06)
[2019-05-10] MEDS ORDERED: ANCEF/NS 1 GM/50 ML 1 GM/50 ML BAG IV SCH (12:00)
[2019-05-10 12:41] LABS: Hematocrit 31.1 % (30.3-42.9); Hemoglobin 10.8 gm/dl (10.1-14.3)
[2019-05-10] MEDS ORDERED: LABETALOL IV ONE (19:08)
--- NOTE | 2019-05-10 19:11 | Progress Note ---
Subjective Date of service: 05/10/19 Principal diagnosis: IUP at term,IOL (PIH, GDM) Interval history: BP's >160 systolic Diastolic<110 Plan for one dose of labetalol 20mg IVPx1 dose repeat BP in 10 minutes and treat evan Velazquez MD Objective - Constitutional Vitals: Vital Signs - 12hr 05/10/19 05/10/19 05/10/19 07:11 07:14 07:16 Pulse Rate 82 73 75 Blood Pressure O2 Sat by Pulse 94 94 94 Oximetry 05/10/19 05/10/19 05/10/19 07:19 07:22 07:24 Pulse Rate 78 77 76 Blood Pressure O2 Sat by Pulse 94 94 93 Oximetry 05/10/19 05/10/19 05/10/19 07:27 07:29 07:32 Pulse Rate 80 75 80 Blood Pressure O2 Sat by Pulse 93 95 86 Oximetry 05/10/19 05/10/19 05/10/19 07:34 07:37 07:39 Pulse Rate 89 74 77 Blood Pressure 137/65 O2 Sat by Pulse 97 96 Oximetry 05/10/19 05/10/19 05/10/19 07:40 07:44 07:46 Pulse Rate 76 77 74 Blood Pressure O2 Sat by Pulse 93 91 94 Oximetry 05/10/19 05/10/19 05/10/19 07:49 07:51 07:54 Pulse Rate 76 71 72 Blood Pressure O2 Sat by Pulse 95 94 93 Oximetry 05/10/19 05/10/19 05/10/19 07:56 07:59 08:01 Pulse Rate 78 80 77 Blood Pressure O2 Sat by Pulse 89 93 88 Oximetry 05/10/19 05/10/19 05/10/19 08:04 08:07 08:09 Pulse Rate 70 71 79 Blood Pressure 157/70 O2 Sat by Pulse 94 96 Oximetry 05/10/19 05/10/19 05/10/19 08:14 08:19 08:24 Pulse Rate 99 H 83 82 Blood Pressure O2 Sat by Pulse 95 96 96 Oximetry 05/10/19 05/10/19 05/10/19 08:29 08:34 08:36 Pulse Rate 83 84 83 Blood Pressure O2 Sat by Pulse 95 96 94 Oximetry 05/10/19 05/10/19 05/10/19 08:37 08:39 08:44 Pulse Rate 80 83 83 Blood Pressure 161/73 O2 Sat by Pulse 97 97 Oximetry 05/10/19 05/10/19 05/10/19 08:49 08:50 08:54 Pulse Rate 83 82 84 Blood Pressure O2 Sat by Pulse 94 92 95 Oximetry 05/10/19 05/10/19 05/10/19 08:59 09:00 09:04 Pulse Rate 83 81 80 Blood Pressure O2 Sat by Pulse 95 94 94 Oximetry 05/10/19 05/10/19 05/10/19 09:06 09:07 09:09 Pulse Rate 79 74 76 Blood Pressure 137/64 O2 Sat by Pulse 94 94 Oximetry 05/10/19 05/10/19 05/10/19 09:12 09:14 09:17 Pulse Rate 79 82 81 Blood Pressure O2 Sat by Pulse 94 95 94 Oximetry 05/10/19 05/10/19 05/10/19 09:19 09:24 09:27 Pulse Rate 86 81 83 Blood Pressure O2 Sat by Pulse 92 92 93 Oximetry 05/10/19 05/10/19 05/10/19 09:29 09:34 09:37 Pulse Rate 83 94 H 98 H Blood Pressure 117/78 O2 Sat by Pulse 92 97 93 Oximetry 05/10/19 05/10/19 05/10/19 09:39 09:42 09:44 Pulse Rate 91 H 99 H 92 H Blood Pressure O2 Sat by Pulse 94 94 96 Oximetry 05/10/19 05/10/19 05/10/19 09:49 09:54 09:56 Pulse Rate 92 H 83 82 Blood Pressure O2 Sat by Pulse 92 95 94 Oximetry 05/10/19 05/10/19 05/10/19 09:59 10:04 10:06 Pulse Rate 82 83 76 Blood Pressure O2 Sat by Pulse 96 96 93 Oximetry 05/10/19 05/10/19 05/10/19 10:07 11:55 11:56 Pulse Rate 80 74 76 Blood Pressure 146/69 148/67 O2 Sat by Pulse 88 Oximetry 05/10/19 05/10/19 05/10/19 14:25 14:26 15:54 Pulse Rate 87 87 74 Blood Pressure 165/77 O2 Sat by Pulse 97 92 96 Oximetry 05/10/19 05/10/19 05/10/19 15:55 18:40 18:42 Pulse Rate 74 86 84 Blood Pressure 179/82 186/78 O2 Sat by Pulse 98 Oximetry 05/10/19 18:44 Pulse Rate 83 Blood Pressure 172/76 O2 Sat by Pulse Oximetry - Labs CBC & Chem 7: 05/10/19 12:20 05/08/19 21:21 Labs: Abnormal lab results 05/09/19 05/10/19 05/10/19 Range/Units 18:16 02:56 05:41 Magnesium 4.80 H 3.80 H 4.20 H (1.7-2.3) mg/dL 05/10/19 05/10/19 Range/Units 12:20 17:35 Magnesium 3.90 H 3.60 H (1.7-2.3) mg/dL Medications & Allergies - Medications Allergies/Adverse Reactions: Allergies aspirin Allergy (Verified 05/08/19 09:22) Anaphylaxis ibuprofen [From Motrin] Adverse Reaction (Severe, Verified 05/08/19 09:17) Anaphylaxis naproxen [From Naprosyn] Adverse Reaction (Verified 05/08/19 09:21) Anaphylaxis Home Medications: Home Medications Medication Instructions Recorded Confirmed Last Taken Type Glyburide 2.5 mg PO Q24H 05/08/19 05/08/19 2 Days Ago History ~05/06/19 2.5mg HYDROcodone/APAP 5-325 [[place] 1 - 2 each PO Q4HR PRN #30 tablet 05/09/19 Unknown Rx 5/325] Active Medications: Generic Name Dose Route Start Last Admin Trade Name Freq PRN Reason Stop Dose Admin Acetaminophen/Hydrocodone Bitart 2 each 05/10/19 18:25 [place] 10/325 PO Q4H PRN Pain, Moderate (4-6) Butorphanol Tartrate 2 mg 05/07/19 16:04 Stadol IV Q2H PRN Pain , Severe (7-10) Ephedrine Sulfate 10 mg 05/07/19 16:04 Ephedrine Sulfate IV Q2M PRN Hypotension Fentanyl 100 mcg 05/07/19 16:04 05/09/19 04:23 Sublimaze IV 100 mcg Q2H PRN Administration Labor Pain Ferrous Sulfate 325 mg 05/10/19 10:00 Feosol PO QDAY NEELA Glyburide 2.5 mg 05/08/19 08:00 05/09/19 06:36 Diabeta PO Not Given BIDDIAB NEELA Lactated Ringer's 1,000 mls @ 125 mls/hr 05/07/19 16:00 05/09/19 05:30 Lactated Ringers IV 75 mls/hr DIRECT NEELA Administration Oxytocin/Sodium Chloride 20 units in 1,000 mls @ 125 mls/hr 05/07/19 17:00 Pitocin/Ns 20 Unit/1000ml Drip IV DIRECT NEELA Oxytocin/Sodium Chloride 30 units in 500 mls @ 1 mls/hr 05/08/19 19:00 05/09/19 15:00 Pitocin/Ns 30 Unit/500ml IV 6 ml/hr TITR NEELA 6 mls/hr Titration Protocol Lactated Ringer's 1,000 mls @ 2,250 mls/hr 05/09/19 19:00 Lactated Ringers IV 05/10/19 19:27 PREOP NEELA Oxytocin/Sodium Chloride 20 units in 1,000 mls @ 0 mls/hr 05/09/19 20:00 Pitocin/Ns 20 Unit/1000ml Drip IV TITR NEELA As Directed Cefazolin Sodium 2 gm in 20 mls @ 80 mls/hr 05/09/19 20:00 Ancef/Sterile Water 2 Gm/20 Ml IV 05/10/19 19:59 PREOP NR Protocol Fentanyl/Bupivacaine/Sodium Chlor 200 mcg in 100 mls @ 8 mls/hr 05/09/19 23:00 Fentanyl-Bupiv 2 Mcg/Ml-0.125% EPIDURAL TITRATE NEELA Protocol Oxytocin/Sodium Chloride 20 units in 1,000 mls @ 250 mls/hr 05/09/19 23:45 Pitocin/Ns 20 Unit/1000ml Drip IV DIRECT NEELA Magnesium Sulfate 40 gm in 1,000 mls @ 25 mls/hr 05/10/19 01:00 05/10/19 00:52 Magnesium Sulfate 40gm/1000ml IV 1 gm/hr DIRECT NEELA 25 mls/hr Administration 1 GM/HR Cefazolin Sodium 1 gm in 50 mls @ 100 mls/hr 05/10/19 12:00 Ancef/Ns 1 Gm/50 Ml IV 05/10/19 20:29 Q8H NEELA Labetalol HCl 100 mg 05/10/19 10:00 Normodyne PO BID NEELA Labetalol HCl 20 mg 05/10/19 19:08 Normodyne IV 05/10/19 19:09 ONCE ONE Mineral Oil 30 ml 05/07/19 16:04 Mineral Oil PO QHS PRN Constipation Misoprostol 25 mcg 05/08/19 09:00 05/08/19 14:06 Cytotec VG 25 mcg Q4H PRN Administration induction Morphine Sulfate 4 mg 05/09/19 23:32 05/10/19 16:08 Morphine IV 4 mg Q4H PRN Administration Pain , Severe (7-10) Multi-Ingredient Ointment 1 applic 05/09/19 23:32 05/10/19 16:11 Lansinoh TP 1 applic PRN PRN Administration dryness/cracking Multivitamins/Iron/Calcium 1 each 05/10/19 10:00 Vitamin PO QDAY NEELA Naloxone HCl 0.1 mg 05/09/19 23:32 Narcan 0.4 Mg/1 Ml IV Q2MIN PRN Res Rate </= 8 or 02 SAT < 92% Ondansetron HCl 4 mg 05/09/19 22:04 Zofran IV Q8H PRN Nausea And Vomiting Promethazine HCl 25 mg 05/09/19 22:04 Phenergan PO Q6H PRN Nausea And Vomiting Promethazine HCl 25 mg 05/09/19 22:04 Phenergan RI Q6H PRN Nausea And Vomiting Sodium Chloride 10 ml 05/09/19 23:00 Sodium Chloride Flush Syringe 10 Ml IV 05/10/19 22:59 PRN NR Sodium Chloride 10 ml 05/09/19 23:45 Sodium Chloride Flush Syringe 10 Ml IV 05/10/19 23:44 PRN NR Terbutaline Sulfate 0.25 mg 05/07/19 16:04 Brethine SUB-Q ONCE PRN Hyperstimulation/Hypertonicity Witch Do/Glycerin 1 each 05/09/19 23:32 Tucks Pad TP PRN PRN Hemorrhoids/cleansing/soothing Zolpidem Tartrate 10 mg 05/08/19 19:50 Ambien PO QHS PRN Insomnia
[2019-05-10] MEDS: NORCO 10/325 PO PRN (23:38)
[2019-05-11] MEDS: NORCO 10/325 PO PRN ×3 (09:24→20:17)
[2019-05-11] MEDS: PRENATAL VITAMIN PO SCH (09:25)
[2019-05-11] MEDS: FEOSOL PO SCH (09:25)
[2019-05-11] MEDS: LABETALOL PO SCH ×2 (09:25→21:38)
--- NOTE | 2019-05-11 16:40 | Progress Note ---
Assessment and Plan A: /postop day 2 S/P primary low transverse section. Anemia secondary to and blood loss. Class 3 obesity. Preeclampsia, on Labetalol. Gestational diabetes. P: Continue current management. Supplement with iron. Subjective - Subjective Date of service: 05/11/19 Principal diagnosis: /postop day 2 S/P primary low tansverse section Interval history: /postop day 2 S/P primary low transverse section. Doing well. Ambulating without difficulty. Voiding without difficulty. Eating regular diet. Passing gas. Patient denies headache, chest pain, cough, shortness of breath, dizziness, nausea or vomiting, leg pain, or heavy vaginal bleeding. Patient reports: appetite normal, voiding normally, flatus, nauseated, no dizzy ambulation, no pain well controlled, no ambulating normally [place]: doing well Objective - Vital Signs Latest vital signs: Vital Signs Temp Pulse Resp BP Pulse Ox 05/11/19 11:33 98.8 F 81 20 147/66 93 05/11/19 09:25 95 H 169/82 05/11/19 08:05 98.4 F 95 H 20 169/82 95 05/11/19 04:41 81 166/74 05/11/19 04:39 81 181/81 05/11/19 03:48 84 96 05/11/19 03:43 77 95 05/11/19 03:38 85 96 05/11/19 03:34 78 143/65 92 05/11/19 03:33 81 95 05/11/19 03:28 84 95 05/11/19 03:25 73 94 05/11/19 03:23 75 95 05/11/19 03:19 80 94 05/11/19 03:18 84 96 05/11/19 03:13 78 97 05/11/19 03:08 82 149/69 97 05/11/19 03:05 83 169/74 05/11/19 03:04 86 92 05/11/19 03:02 88 97 05/11/19 02:59 76 93 05/11/19 02:57 72 95 05/11/19 02:53 72 94 05/11/19 02:52 71 95 05/11/19 02:48 76 94 05/11/19 02:47 75 95 05/11/19 02:42 86 96 10/19/19 02:37 87 95 05/11/19 02:34 81 148/69 05/11/19 02:33 83 94 19 02:32 84 96 19 02:27 83 96 05/11/19 02:22 95 H 97 05/11/19 02:17 99 H 97 05/11/19 02:12 87 94 05/11/19 02:07 83 95 05/11/19 02:04 84 144/65 92 05/11/19 02:02 96 H 98 05/11/19 02:00 98.1 F 18 05/11/19 01:57 82 96 19 01:55 77 94 05/11/19 01:52 78 97 05/11/19 01:48 95 H 94 05/11/19 01:47 107 H 95 05/11/19 01:42 76 94 05/11/19 01:39 80 94 19 01:37 80 96 05/11/19 01:35 73 190/83 19 01:33 75 94 19 01:32 80 94 05/11/19 01:27 78 95 05/11/19 01:22 77 95 05/11/19 01:19 78 94 19 01:17 83 96 19 01:13 86 94 19 01:12 87 95 05/11/19 01:07 85 95 05/11/19 01:05 84 170/74 05/11/19 01:04 84 89 05/11/19 01:02 83 96 19 00:57 86 95 19 00:52 85 97 05/11/19 00:47 83 96 19 00:42 85 95 05/11/19 00:37 90 97 05/11/19 00:34 93 H 130/65 91 05/11/19 00:32 82 97 19 00:27 87 97 19 00:22 89 98 05/11/19 00:17 102 H 98 05/11/19 00:12 84 94 05/11/19 00:07 82 95 19 00:06 81 94 19 00:04 85 147/68 10/19/19 00:02 87 160/72 97 19/19 00:01 85 93 10/19/19 00:00 98.5 F 18 18/19 23:57 81 96 18/19 23:52 84 96 18/19 23:47 83 97 18/19 23:42 89 98 18/19 23:37 86 98 18/19 23:32 89 97 18/19 23:28 82 176/75 18/19 23:27 85 96 18/19 23:24 87 187/81 94 18/19 23:22 88 97 18/19 22:06 77 178/76 18/19 22:04 72 180/80 18/19 22:03 72 95 18/19 21:58 80 97 18/19 21:53 88 96 18/19 21:48 84 98 18/19 21:43 81 98 18/19 21:38 92 H 97 18/19 21:33 94 H 98 18/19 21:28 89 100 18/19 21:26 82 159/70 92 18/19 21:23 95 H 99 18/19 21:18 80 96 18/19 21:13 87 174/56 96 18/19 21:08 93 H 97 18/19 21:03 87 96 18/19 21:02 86 175/75 93 18/19 20:58 90 98 18/19 20:53 82 178/73 96 18/19 20:49 84 92 18/19 20:48 83 98 18/19 20:47 85 188/78 1018/19 20:43 90 97 1018/19 20:38 87 97 18/19 20:33 77 96 1018/19 20:32 80 182/75 93 18/19 20:28 74 98 1018/19 20:23 79 96 1018/19 20:22 81 174/74 1018/19 20:18 79 98 1018/19 20:13 82 96 1018/19 20:11 82 192/79 1018/19 20:08 85 192/79 96 10/18/19 20:05 98.4 F 83 18 94 05/10/19 20:03 87 96 05/10/19 18:44 83 172/76 05/10/19 18:42 84 186/78 05/10/19 18:40 86 98 Intake and Output 05/11/19 05/11/19 05/11/19 07:59 15:59 23:59 Intake Total 5 360 Output Total 620 Balance -615 360 Intake: IV 5 Left Hand 5 Oral 360 Output: Urine 620 Indwelling Catheter 620 Other: Total, Intake Amount 240 Total, Output Amount 120 # Voids Void 1 - Exam Cardiovascular: Present: Regular rate, Normal S1, Normal S2, No murmurs Lungs: Present: Clear to auscultation Abdomen: Present: normal appearance, normal bowel sounds. Absent: soft, distention, tenderness, guarding, rigidity Uterus: Present: normal, firm, fundal height below umbilicus. Absent: bogginess, tenderness Extremities: Present: normal, edema (bilateral pedal edema). Absent: tenderness Incision: Present: normal, dry, intact - Labs Labs: Abnormal lab results 05/10/19 05/11/19 Range/Units 17:35 00:35 Magnesium 3.60 H 3.20 H (1.7-2.3) mg/dL
[2019-05-12] MEDS: NORCO 10/325 PO PRN ×4 (05:10→20:20)
[2019-05-12] MEDS: FEOSOL PO SCH (09:51)
[2019-05-12] MEDS: PRENATAL VITAMIN PO SCH (09:51)
[2019-05-12] MEDS: LABETALOL PO SCH ×2 (09:51→21:27)
--- NOTE | 2019-05-12 13:27 | Progress Note ---
Assessment and Plan A: /postop day 3 S/P primary low transverse section. Severe preeclampsia before and right after delivery. Obesity. Gestational diabetes. Anemia secondary to and blood loss. P: Continue current management. Continue to monitor BPs. Continue iron supplementation. Encouraged ambulation. Subjective - Subjective Date of service: 05/12/19 Principal diagnosis: /postop day 3 S/P primary low tansverse section Interval history: /postop day 3 S/P primary low transverse section. Doing well. Ambulating without difficulty. Voiding without difficulty. Eating regular diet. Passing gas. Patient denies headache, chest pain, cough, shortness of breath, dizziness, nausea or vomiting, leg pain, or heavy vaginal bleeding. Patient reports: appetite normal, voiding normally, pain well controlled, flatus, ambulating normally, no dizzy ambulation, no nauseated : doing well Objective - Vital Signs Latest vital signs: Vital Signs Temp Pulse Resp BP Pulse Ox 05/12/19 09:51 81 147/75 05/12/19 09:02 98.1 F 81 20 147/75 97 05/12/19 05:10 18 05/12/19 04:53 88 147/70 99 05/12/19 01:30 98.4 F 85 18 155/84 100 05/11/19 21:39 89 151/74 98 05/11/19 21:38 69 151/74 05/11/19 15:58 98.8 F 82 16 150/73 98 Intake and Output 05/11/19 05/12/19 05/12/19 23:59 07:59 15:59 Intake Total 480 360 240 Balance 480 360 240 Intake: Oral 480 360 240 Other: Total, Intake Amount 240 120 240 # Voids Void 1 1 - Exam Cardiovascular: Present: Regular rate, Normal S1, Normal S2, No murmurs Lungs: Present: Clear to auscultation Abdomen: Present: normal appearance, soft, normal bowel sounds. Absent: distention, tenderness, guarding, rigidity Uterus: Present: normal, firm, fundal height below umbilicus. Absent: bogginess, tenderness Extremities: Present: edema (bilateral LE edema (ankles and feet)). Absent: tenderness Incision: Present: normal, dry, intact - Labs Labs: Abnormal lab results 05/11/19 Range/Units 17:00 POC Glucose 114 H (70-105)
[2019-05-13] MEDS: NORCO 10/325 PO PRN ×3 (02:09→17:55)
--- NOTE | 2019-05-13 10:07 | Progress Note ---
Assessment and Plan - Patient Problems (1) S/P primary low transverse Current Visit: Yes Status: Acute Plan to address problem: POD 4 - stable Discharge to home today Follow up at [facility] as needed or in 5 days for incision check, BP check, and blood glucose evaluation (2) Pre-eclampsia Current Visit: Yes Status: Acute Qualifiers: Trimester: third trimester Qualified Code(s): O14.93 - Unspecified pre- eclampsia, third trimester Plan to address problem: Asymptomatic - last BP 133/68 Completed MgSO4 therapy On Labetalol 100mg PO BID (3) Pregestational diabetes mellitus, modified White class B Current Visit: Yes Status: Acute Plan to address problem: Last BG 82 Currently not on medication Encouraged patient to continue home blood sugar monitoring 4x/d and follow up at the clinic in 5 days for evaluation (4) Obesity (BMI 30-39.9) Current Visit: Yes Status: Acute Subjective - Subjective Date of service: 05/13/19 Principal diagnosis: POD #4; s/p Primary LTCS; Pre-eclampsia; Pregestational DM Interval history: see H&P, Event Notes, OB Progress Notes, Operative Report, Progress Note and PP/[employer] Progress Notes Patient reports: appetite normal, voiding normally, pain well controlled, flatus, ambulating normally, other (denies headache, visual disturbances or RUQ pain), no dizzy ambulation, no bowel movement [place]: doing well, other (breast and bottle feeding) Objective - Vital Signs Latest vital signs: Vital Signs Temp Pulse Resp BP BP Pulse Ox 05/13/19 07:31 98.0 F 87 18 133/68 05/12/19 23:57 98.1 F 82 20 143/67 100 05/12/19 21:27 87 165/79 05/12/19 21:20 18 05/12/19 20:20 18 05/12/19 16:32 98.1 F 83 20 140/72 97 Intake and Output 05/12/19 05/13/19 05/13/19 23:59 07:59 15:59 Intake Total 360 600 Balance 360 600 Intake: Oral 600 Intake, Free Water 360 Other: Total, Intake Amount 480 # Voids Void 2 - Exam Cardiovascular: Present: Regular rate Lungs: Present: Clear to auscultation Abdomen: Present: normal appearance, soft Vulva: both: normal Uterus: Present: normal, firm, fundal height below umbilicus Extremities: Present: normal Incision: Present: normal, dry, intact, other (steri strips in place) Comments: scant lochia - Labs Labs: Abnormal lab results 05/12/19 Range/Units 21:41 POC Glucose 117 H (70-105)
--- NOTE | 2019-05-13 10:17 | Discharge Summary ---
Providers - Providers Date of Admission: 05/07/19 13:12 Date of discharge: 05/13/19 Attending physician: DOMINGO MORELOS MD Primary care physician: DOMINGO MORELOS MD Hospitalization Reason for admission: induction of labor, IUP at term Delivery: Procedure: primary low transverse Episiotomy: none Laceration: none Incision: normal, dry, intact, other (steri strips in place) Other procedures: none complications: none Discharge diagnosis: IUP at term delivered baby: male Hospital course: Uncomplicated Condition at discharge: Stable Disposition: DC-01 TO HOME OR SELFCARE - Discharge Diagnoses (1) S/P primary low transverse Status: Acute (2) Pre-eclampsia Status: Acute Qualifiers: Trimester: third trimester Qualified Code(s): O14.93 - Unspecified pre- eclampsia, third trimester Comment: Continue Labetalol 100mg by mouth twice daily (3) Pregestational diabetes mellitus, modified White class B Status: Acute Comment: Continue checking blood glucose at home 4 times daily and follow-up at the clinic for evaluation (4) Obesity (BMI 30-39.9) Status: Acute Plan - Discharge Medications Prescriptions: Labetalol [Labetalol 100mg TAB] 100 mg PO BID #60 tablet HYDROcodone/APAP 5-325 [[place] 5/325] 1 - 2 each PO Q4HR PRN #30 tablet PRN Reason: Pain - Provider Discharge Summary Activity: routine, no sex for 6 weeks, no heavy lifting 4 weeks, no strenuous exercise Diet: routine Instructions: routine Additional instructions: [] Smoking cessation referral if applicable(refer to patient education folder for contact #) [] Refer to [facility] Book[facility] Call your doctor immediately for: * Fever > 100.5 * Heavy vaginal bleeding ( >1 pad per hour) * Severe persistent headache * Shortness of breath * Reddened, hot, painful area to leg or breast * Drainage or odor from incision. * Keep incision clean and dry at all times and follow doctor's instructions regarding bathing/showering - Follow up plan Follow up: DOMINGO MORELOS MD [Primary Care Provider] - 05/17/19 (Follow up at [facility] as needed or in 5 days for incision check, BP check, and blood glucose evaluation)
[2019-05-13] MEDS: FEOSOL PO SCH (11:42)
[2019-05-13] MEDS: PRENATAL VITAMIN PO SCH (11:42)
[2019-05-13] MEDS: LABETALOL PO SCH (11:42)
[2019-05-13 18:46] VITALS: BP 164/86
== END 2019-05-13 19:03 | disposition home or self-care (01) | DRG 788 ==
LOC: LD 13:12 → OB 05-11 05:57
PROVIDERS: ADMIT Obstetrics & Gynecology; ATTEND Obstetrics & Gynecology
PROC: 10D00Z1 Extraction of Products of Conception, Low, Open Approach (ICD-10-PCS; principal; 2019-05-09)
DX: O11.4 Pre-existing hypertension with pre-eclampsia, complicating childbirth (principal); O61.9 Failed induction of labor, unspecified; O24.429 Gestational diabetes mellitus in childbirth, unspecified control; O99.214 Obesity complicating childbirth; O99.02 Anemia complicating childbirth; D50.0 Iron deficiency anemia secondary to blood loss (chronic); E66.01 Morbid (severe) obesity due to excess calories; Z3A.37 37 weeks gestation of pregnancy; Z37.0 Single live birth; Z82.49 Family history of ischemic heart disease and other diseases of the circulatory system; Z83.3 Family history of diabetes mellitus
CPT/HCPCS: 36415; 59200; 76815; 80053; 81001; 82565; 82962; 83615; 83735; 84450; 84460; 84550; 85007; 85014; 85018; 85025; 85027; 86850; 86900; 86901; 88307; G0378; A6250; J0690; J1200; J1885; J2270; J2370; J2405; J2590; J2765; J3010; J3475; J3490; J7120